=== PATIENT | female | born 1970 | race African-American/Black ===

== ENCOUNTER 2020-09-25 11:04 | Emergency (ER) | payer OTHER, SELFPAY ==
--- NOTE | ~2020-09-25 | XR_ITS ---
EXAMINATION: XR hand RT min 3V DATE: 09/25/2020 11:56 INDICATION: Right hand pain. Inability to straighten the third digit. TECHNIQUE: 4 views of right hand were obtained. COMPARISON: None. FINDINGS: The second, third, and fourth digits are flexed on all views. No fracture. Joint spaces are normal. IMPRESSION: 1. No fracture. Reviewed, dictated and finalized at location A. IMPRESSION: 1. No fracture.
[2020-09-25 11:27] VITALS: BP 148/95; PULSE 67; RESP 16; TEMP 36.4; O2SAT 100
--- NOTE | 2020-09-25 11:45 | ED.UPPEXIN ---
HPI - Extremity Injury (Upper) General Chief Complaint: Extremity Injury, Upper Stated Complaint: rt hand pain Time Seen by Provider: 09/25/20 11:35 Source: patient Mode of arrival: ambulatory Limitations: no limitations History of Present Illness HPI narrative: Brandy Gardiner a 50 yo female with PMH of RA, OA, lupus, who comes to the [facility] with complaints of difficulty opening right hand and swelling nodules on the back of right hand. Denies trauma or any infection; occurred in the last 24 hours, are tender nodules Related Data Home Medications Medication Instructions Recorded Confirmed ibuprofen 800 mg PO Q6H PRN 09/25/20 09/25/20 Allergies Allergy/AdvReac Type Severity Reaction Status Date / Time codeine Allergy Mild Other Verified 09/25/20 12:34 Review of Systems Review of Systems: Narrative: CONSTITUTIONAL: Denies fever, chills, sweats. EYES: Denies visual changes, redness, discharge. ENT: Denies rhinorrhea, congestion, sore throat, otalgia. CARDIOVASCULAR: Denies chest pain, palpitations, edema. RESPIRATORY: Denies dyspnea, wheezing, cough GASTROINTESTINAL: Denies abdominal pain, nausea, vomiting, diarrhea. GENITOURINARY: Denies dysuria, hematuria, abnormal discharge SKIN: Denies rash or itching. Difficulty opening hand with nodules on the dorsal side of hand, mild hand swelling NEUROLOGIC: Denies numbness, or focal weakness. PSYCHIATRIC: Denies anxiety or depression. PMFSH Past Medical History Medical History Osteoarthritis Rheumatoid arthritis Social History Social History (Updated 09/25/20 @ 12:12 by Renetta Juarez CNP) Smoking status: Never smoker Alcohol intake: never Comments At time of signature, I agree with nursing past medical, surgical, social and family history. There is no relevant family history pertinent to the presenting complaint. BP elevated on this visit, to follow up with pcp this next week Exam Narrative: Exam Narrative: GENERAL: This is a well-nourished, well-developed patient, in mild distress. HEAD: normocephalic, atraumatic. EYES:Sclera clear/white. Vision is grossly intact. EARS: External ears normal, Hearing grossly intact. NOSE: External nose normal without nasal discharge, nares without redness, no rhinorrhea. THROAT: Mucous membranes moist, NECK: Neck supple, CARDIOVASCULAR: Regular rate and rhythm without murmurs, gallops, or rubs. RESPIRATORY: Clear to auscultation. Breath sounds equal bilaterally. No wheezes, rales, or rhonchi. GASTROINTESTINAL: Abdomen soft, SKIN: warm, intact with no suspicious lesions or rash, good texture and turgor. NEURO: awake, alert, and oriented to person, place and time. There were no obvious focal neurologic abnormalities. Steady gait EXTREMITIES: Normal range of motion. 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, 5/5 on L BACK: Nontender without deformity Course Course Emergency Course: Patient states has already in his treatment at [facility] but does not take any medication; she has knowledge of the back of her right hand and difficulty opening her hand full extension, states nodules are tender X-ray shows no fracture on my exam, no nodules states joint spaces are normal Started on prednisone and Keflex Follow-up with physician at [facility] Vital Signs Vital signs: Vital Signs Temperature 97.5 F L 09/25/20 11:27 Pulse Rate 67 09/25/20 11:27 Respiratory Rate 16 09/25/20 11:27 Blood Pressure 148/95 H 09/25/20 11:27 Pulse Oximetry 100 09/25/20 11:27 Temperature 97.5 F L 09/25/20 11:27 Pulse Rate 67 09/25/20 11:27 Respiratory Rate 16 09/25/20 11:27 Blood Pressure 148/95 H 09/25/20 11:27 Pulse Oximetry 100 09/25/20 11:27 MDM - Extremity Injury (Upper) Differential Diagnosis Differential diagnosis: Likely other (RA versus OA versus insect bite reaction) Critical Care Ti
[2020-09-25] MEDS: predniSONE 20 MG TABLET 60 MG PO (13:26)
--- NOTE | 2020-09-25 14:33 | PC.NURSE ---
1326 Pt returned to facility for ordered medication; left facility without incident.
== END 2020-09-25 13:30 | disposition home or self-care (01) ==
PROVIDERS: Emergency Provider Nurse Practitioner; PCP Internal Medicine Infectious Disease
DX: M79.89 Other specified soft tissue disorders (principal); M19.90 Unspecified osteoarthritis, unspecified site; M06.9 Rheumatoid arthritis, unspecified; M32.9 Systemic lupus erythematosus, unspecified
CPT/HCPCS: 73130; 99203; G0463; J7512

== ENCOUNTER 2021-11-26 16:27 | Emergency (ER) | payer OTHER, SELFPAY ==
--- NOTE | ~2021-11-26 | XR_ITS ---
XR shoulder RT min 2V DATE: 11/26/2021 17:12 INDICATION: Generalized right shoulder pain TECHNIQUE: 3 views COMPARISON: None FINDINGS: No fracture or dislocation, periosteal reaction or bone destruction or abnormal soft tissue calcification of the right shoulder. IMPRESSION: Negative Reviewed, dictated and finalized at location B. IMPRESSION: Negative
--- NOTE | ~2021-11-26 | XR_ITS ---
EXAMINATION: XR foot RT min 3V DATE: 11/26/2021 17:12 INDICATION: Right foot pain TECHNIQUE: Dorsoplantar, lateral, and 2 oblique views of the right foot were obtained. COMPARISON: None. FINDINGS: Bone alignment is normal. There is a subtle heterotopic ossification projecting dorsal to t he neck of the talus on the lateral view. There is moderate to severe osteoarthritis of multiple inte rphalangeal joints. Posterior and plantar calcaneal enthesophytes are noted. IMPRESSION: 1. Heterotopic ossification projecting dorsal to the neck of the talus on the lateral view which coul d reflect degenerative change. Correlate for point tenderness at this site for possible fracture. Reviewed, dictated and finalized at location A. IMPRESSION: 1. Heterotopic ossification projecting dorsal to the neck of the talus on the l ateral view which could reflect degenerative change. Correlate for point tender ness at this site for possible fracture.
--- NOTE | 2021-11-26 16:29 | ED.UPPEXIN ---
HPI - Extremity Injury (Upper) General Stated Complaint: INJURED SHOULDER/FOOT Time Seen by Provider: 11/26/21 16:28 Source: patient Mode of arrival: ambulatory Limitations: no limitations History of Present Illness HPI narrative: Ms. Keys is a 51-year-old female patient with history of rheumatoid arthritis, lupus, and type II diabetes presenting to the clinic today with complaints of injured shoulder and foot. She reports exiting her vehicle this morning when she slipped on the grass and pulled her right shoulder and banged her foot on the car door. 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 She denies head injury or loss of consciousness. She has not taken any additional medications to help with pain, just her normal medications. Related Data Home Medications Medication Instructions Recorded Confirmed ibuprofen 800 mg tablet 800 mg PO Q6H PRN Pain 09/25/20 09/25/20 ergocalciferol (vitamin D2) 1,250 11/26/21 mcg (50,000 unit) capsule hydroxychloroquine 200 mg tablet mg PO 11/26/21 metformin 500 mg tablet,extended mg PO 11/26/21 release 24 hr rosuvastatin 5 mg tablet mg 11/26/21 sulfamethoxazole 800 tablet 11/26/21 mg-trimethoprim 160 mg tablet Allergies Allergy/AdvReac Type Severity Reaction Status Date / Time codeine Allergy Mild Other Verified 11/26/21 16:38 Review of Systems Review of Systems: Pertinent positives per HPI. Patient denies any fever, chills, rash, headache, visual changes, dizziness, cough, runny nose, sore throat, shortness of breath, chest pain, palpitations, nausea, vomiting, diarrhea, constipation, abdominal pain, or any urinary issues. FORMERLY [facility], [facility]1983 Past Medical History Medical History Osteoarthritis Rheumatoid arthritis Social History Social History Smoking status: Never smoker Alcohol intake: never Comments At the time of my signature, I reviewed and agree with the nursing past medical, surgical, social, and family history. There is no relevant family history pertinent to the patient complaint. Exam Narrative: General: Well-developed, over-weight, well nourished, in no apparent distress Head: Normocephalic, atraumatic. Cardio: Regular rate and rhythm, s1 and s2 normal, no murmur appreciated. Resp: Clear to auscultation bilaterally, no rhonchi, rales, wheezing or rubs. Musculoskeletal: No deformity, tender to palpation diffusely across the muscles surrounding the shoulder and shoulder joints as well as to the middle anterior aspect of the right foot across the proximal metatarsals, limited range of motion of the right shoulder secondary to pain when compared to left, negative drop-arm test, unable to raise right arm above shoulder level, normal ROM of the toes and ankles, muscle strength strong and equal, peripheral pulse strong, no edema, no cyanosis, normal gait and station Course Course Emergency Course: Portions of this record may have been created with voice recognition software. Level of Care: Express Care Visit Vital Signs Vital signs: Vital signs reviewed MDM - Extremity Injury (Upper) MDM Narrative Medical decision making narrative: At the time of visit patient was resting comfortably on the exam table. X-rays were performed of the right shoulder and right foot and there was no sign of acute fracture per radiologist. I suspect the patient has a right shoulder strain and foot contusion. Supportive measures were discussed with the patient she voiced understanding of discharge instructions and agrees to treatment plan. Differential Diagnosis Differential diagnosis: Likely dislocation of shoulder, fracture of clavicle and other (Shoulder strain, shoulder fracture, foot fracture, foot sprain, foot contusion, soft tissue injury) Imaging Data Radiologist's impression: Express Care
[2021-11-26 16:35] VITALS: BP 114/90; PULSE 92; RESP 16; TEMP 36.5; O2SAT 99
== END 2021-11-26 17:55 | disposition home or self-care (01) ==
PROVIDERS: Emergency Provider Nurse Practitioner Family; PCP Internal Medicine Infectious Disease
DX: S46.911A Strain of unspecified muscle, fascia and tendon at shoulder and upper arm level, right arm, initial encounter (principal); W01.0XXA Fall on same level from slipping, tripping and stumbling without subsequent striking against object, initial encounter; M79.671 Pain in right foot; M06.9 Rheumatoid arthritis, unspecified; E11.9 Type 2 diabetes mellitus without complications; M32.9 Systemic lupus erythematosus, unspecified
CPT/HCPCS: 73030; 73630; 99214; G0463

== ENCOUNTER 2021-12-14 10:00 | Emergency (ER) | payer OTHER, SELFPAY ==
--- NOTE | 2021-12-14 10:04 | ED.URI ---
HPI - URI/Sore Throat General Chief Complaint: Nausea/Vomiting/Diarrhea Stated Complaint: abdominal pain, nausea, cough, runny nose Time Seen by Provider: 12/14/21 10:49 Source: patient and RN notes reviewed Mode of arrival: ambulatory Limitations: no limitations History of Present Illness HPI Narrative: 51-year-old female presents with concern for nasal congestion, rhinorrhea, cough, nausea, diarrhea, some vomiting with dry heaving, epigastric discomfort. She reports symptoms started on mildly, increased and were worse on Tuesday. She reports her employer had cold symptoms. She reports she took a negative COVID test on Tuesday. She reports she recently has been started on metformin along with several other new medications that she feels she is not tolerating very well. She is also currently on Bactrim for periodontal disease. She reports she is tolerating fluids enough to urinate at least every 6-8 hours. MD elicited complaint: cough, rhinorrhea, nasal congestion and other (Vomiting and diarrhea) Related Data Home Medications Medication Instructions Recorded Confirmed ibuprofen 800 mg tablet 800 mg PO Q6H PRN Pain 09/25/20 12/14/21 ergocalciferol (vitamin D2) 1,250 1 mcg PO DAILY 11/26/21 12/14/21 mcg (50,000 unit) capsule hydroxychloroquine 200 mg tablet 200 mg PO DAILY 11/26/21 12/14/21 metformin 500 mg tablet,extended 500 mg PO DAILY 11/26/21 12/14/21 release 24 hr rosuvastatin 5 mg tablet 5 mg PO DAILY 11/26/21 12/14/21 sulfamethoxazole 800 1 tablet PO DAILY 11/26/21 12/14/21 mg-trimethoprim 160 mg tablet Allergies Allergy/AdvReac Type Severity Reaction Status Date / Time codeine Allergy Mild Other Verified 12/14/21 10:29 Review of Systems Review of Systems: CONSTITUTIONAL: Reports malaise, fatigue. Denies chills, sweats, or fever. EYES: Denies visual changes, redness, or discharge. ENT: Reports rhinorrhea, congestion. Denies sinus pain, otalgia and sore throat. CARDIOVASCULAR: Denies chest pain, palpitations, or edema. RESPIRATORY: Reports cough. Denies dyspnea. GASTROINTESTINAL: Reports epigastric abdominal pain, nausea, vomiting, diarrhea SKIN: Denies rash or itching. MUSCULOSKELETAL: Reports myalgia. NEUROLOGIC: Denies headache. All systems reviewed & are unremarkable except as noted in HPI and below PMFSH Past Medical History Medical History Osteoarthritis Rheumatoid arthritis Social History Social History Smoking status: Never smoker Alcohol intake: never Comments At time of signature, agree with nursing past medical, surgical, social and family history. There is no relevant family history pertinent to the presenting complaint Exam Narrative: GENERAL: Nontoxic appearing and in no acute distress. HEAD: Normocephalic EYES: PERRLA, conjunctivae clear ENT: Nares clear, turbinates erythematous, clear discharge. Mucous membranes moist. TM pearly dickey with sharp light reflex bilaterally; no tragal tenderness. Oropharynx erythematous without lesions. Tonsils not enlarged and without exudate, no drooling, no hoarseness, no trismus, uvula midline. NECK: Supple. No lymphadenopathy CHEST: Clear to auscultation, breath sounds equal. No wheezing, rhonchi, rales, or stridor. No respiratory distress, speaks in full sentences. HEART: Regular rate and rhythm. No murmur heard. ABD: Bowel sounds present in all 4 quadrants, no abdominal distention noted, mild epigastric tenderness SKIN: Warm, dry, no rash. NEURO: Alert and oriented x3. PSYCH: Normal mood and affect Course Course Emergency Course: Discussed limited [facility] capability [facility]. Patient feels that her stomach discomfort may be due to poor tolerance of her new medications. Patient is aware of diagnosis, understands and agrees to treatment plan. Anticipatory guidance given. Patient
[2021-12-14 10:25] VITALS: BP 115/75; PULSE 78; RESP 16; TEMP 36.4; O2SAT 100
== END 2021-12-14 11:37 | disposition home or self-care (01) ==
PROVIDERS: Emergency Provider Nurse Practitioner; PCP Internal Medicine Infectious Disease
DX: J06.9 Acute upper respiratory infection, unspecified (principal); Z20.822 Contact with and (suspected) exposure to COVID-19; M19.90 Unspecified osteoarthritis, unspecified site; M06.9 Rheumatoid arthritis, unspecified
CPT/HCPCS: 87426; 87804; 99213; C9803; G0463

== ENCOUNTER 2024-09-04 08:10 | Emergency (ER) | payer BC, SELFPAY ==
--- NOTE | 2024-09-04 08:22 | ED_ITS ---
HPI - Extremity Injury (Lower) General Chief Complaint: Extremity Problem,Nontraumatic Stated Complaint: Right Ankle Pain Time Seen by Provider: 09/04/24 08:40 Source: patient and RN notes reviewed Mode of arrival: ambulatory Limitations: no limitations History of Present Illness HPI Narrative: 54-year-old female presents with concern for right ankle pain and swelling. She has history of lupus and rheumatoid arthritis. She reports Tuesday she was sitting for prolonged period of time with her ankle an awkward position and she noticed the pain started after that. She later stepped down out of a truck and put more pressure on it than usual exacerbating the pain. She reports pain with weight-bearing and certain range of motion. She has been alternating Tylenol and ibuprofen and elevating it and using heat. Denies warmth, redness, open skin. She denies injury MD complaint: ankle injury Related Data Home Medications ?Medication ?Instructions ?Recorded ?Confirmed ?Last Taken ?Type ergocalciferol (vitamin D2) 1,250 1 mcg PO DAILY 11/26/21 12/14/21 Unknown History mcg (50,000 unit) capsule hydroxychloroquine 200 mg tablet 200 mg PO DAILY 11/26/21 12/14/21 Unknown History metformin 500 mg tablet,extended 500 mg PO HS 11/26/21 12/14/21 Unknown History release 24 hr rosuvastatin 5 mg tablet 5 mg PO DAILY 11/26/21 12/14/21 Unknown History Allergies Allergy/AdvReac Type Severity Reaction Status Date / Time codeine Allergy Mild Other Verified 09/04/24 08:29 Review of Systems Review of Systems: CONSTITUTIONAL: Denies malaise, chills, sweats, or fever. SKIN: Denies rash or itching, open skin, laceration, abrasion, redness, warmth MUSCULOSKELETAL: Reports right ankle pain and swelling NEUROLOGIC: Denies numbness, weakness All systems reviewed & are unremarkable except as noted in HPI and below PMFSH Past Medical History Medical History Osteoarthritis Rheumatoid arthritis Social History Social History Smoking status: Never smoker Alcohol intake: never Comments At time of signature, agree with nursing past medical, surgical, social and family history. There is no relevant family history pertinent to the presenting complaint Exam Narrative: GENERAL: Well-appearing, well-nourished, and in no acute distress. HEAD: Normocephalic, atraumatic. EYES: PERRLA, conjunctivae clear NECK: Supple. CHEST: Speaks in full sentences. No respiratory distress. HEART: Regular rate and rhythm. Normal and equal peripheral pulses. EXTREMITIES: Right ankle, foot, digits have grossly normal strength and sensation, grossly normal range of motion. Mild lateral edema without erythema, warmth, or ecchymosis. 5/5 strength with ankle in digit flexion and extension. Normal sensation with sensitivity to light touch and pain. Posterior and lateral ankle tenderness. No open wounds, no skin tenting, no devitalized tissue or atrophy, no trophic changes, no obvious deformity, alignment normal, nearby joints and structures intact. Distal pulses palpable and equal bilaterally, skin warm, dry, pink. Capillary refill less than 3 seconds. SKIN: Warm, dry, no rash. NEURO: Alert and oriented x3. PSYCH: Normal mood and affect Course Course Emergency Course: Patient is aware of diagnosis, understands and agrees to treatment plan. Anticipatory guidance given. Patient agrees to follow-up as directed and is aware of reasons to seek care at the emergency department. Portions of this record may have been created with voice recognition software Level of Care: Express Care Visit Vital Signs Vital signs: Reviewed. MDM - Extremity Injury (Lower) MDM Narrative Medical decision making narrative: The patient was evaluated by myself in the express care. History is obtained from patient who is an independent historian and physical exam was performed.? Available medical records were reviewed at this time. ? Exam findings show no acute concerns or changes; patient is non-toxic appearing and is in no distress. Patient is appropriate for outpatient treatment and follow-up. ? I have evaluated and discussed social determinants of health with the patient that could potentially impact subsequent diagnosis and treatment plans. ? Patients injury and pain is consistent with musculoskeletal etiology. No signs of neurological or vascular compromise on exam. Compartments and tissues are soft without signs of compartment syndrome. Pain is felt appropriate for further evaluation on an outpatient basis. Critical Care Time Critical Care Time Critical Care Time: No Discharge Plan Discharge Clinical Impression: Tendinitis Patient Disposition: Home Condition: Stable Instructions: Tendinitis (ED) Additional Instructions: Avoid activities that cause pain until the pain subsides. Ice to the area 20-30 minutes 4-6 times a day Elevate above heart Elastic wrap as directed for the next 5-7 days Tylenol for lesser pain Ibuprofen regularly for the next 2-3 days for the inflammation Follow up with your primary care provider if the condition is not improving within 1 week. If the condition worsens with numbness, tingling, decrease sensation with weakness seek treatment in the emergency room immediately. Patient Language: Mongolian Prescriptions: No Action ipratropium bromide 21 mcg (0.03 %) spray,non-aerosol 2 spray NASAL TID PRN (Reason: nasal drainage) Qty: 30 0RF Rx Instructions: administer into each nostril ergocalciferol (vitamin D2) 1,250 mcg (50,000 unit) capsule 1 mcg PO DAILY hydroxychloroquine 200 mg tablet 200 mg PO DAILY metformin 500 mg tablet extended release 24 hr 500 mg PO HS rosuvastatin 5 mg tablet 5 mg PO DAILY Follow-up/Referrals: PHYSICIAN,SOCIAL SCIENCES LECTURER [Primary Care Provider] - Stand Alone Forms: Work/School Release IP Time of Disposition: 08:53
[2024-09-04 08:28] VITALS: BP 119/90; PULSE 80; RESP 14; TEMP 36.9; O2SAT 100
== END 2024-09-04 08:55 | disposition home or self-care (01) ==
PROVIDERS: Emergency Provider Nurse Practitioner
DX: M67.873 Other specified disorders of tendon, right ankle and foot (principal); M19.90 Unspecified osteoarthritis, unspecified site; M06.9 Rheumatoid arthritis, unspecified
CPT/HCPCS: 99212; G0463

== ENCOUNTER 2024-11-27 12:40 | Emergency (ER) | payer BC, SELFPAY ==
--- OUTSIDE RECORDS SUMMARY | 2024-11-27 12:47 | XMS_ITS | Encounter Summary ---
Author Organization [facility] Address [address] [place] [address] Phone Care Team Providers Care Automobile Brake Bonder Name Role Phone Kellie Tracy MD Primary Care Provider Encounter Details Date Type Department Care Team (Late st Contact Info) Description 11/26/2021 Orders Only [facility] Scanning, Provider Social History Tobacco Use Types Packs/Day Years Used Date Smoking Tobacco: Never Smokeless Tobacco: Never Alcohol Use Standard Drinks/Week Comments Not Currently 0 (1 standard drink = 0.6 oz pur e alcohol) Comments No Sex and Gender Information Value Date Recorded Sex Assigned at Not on file 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 Gender Identity Not on file Sexual Orientation Not on file documented as of this encounter Plan of Treatment Not on file documented as of this encounter Procedures Procedure Name Priority Date/Time Associated Diagnosis Comments SCAN - RADIOLOGY/IMAGING 11/26/2021 documented in this encounter Results * SCAN - RADIOLOGY/IMAGING (11/26/2021) Anatomical Region Laterality Modality Other us Provider Scanning Final Result documented in this encounter Visit Diagnoses Not on filedocumented in this encounter Additional Health Concerns Infection Onset Date Last Indicated Resolved Time COVID: Suspected 03/22/2023 03/22/2023 03/22/2023 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
--- OUTSIDE RECORDS SUMMARY | 2024-11-27 12:47 | XMS_ITS | Encounter Summary ---
Author Organization [facility] Address [address] [place] [address] Phone Care Team Providers Care Adz Worker Name Role Phone Kellie Tracy MD Primary Care Provider Encounter Details Date Type Department Care Team (Late st Contact Info) Description 10/31/2019 Orders Only [facility] Scanning, Provider Social History Tobacco Use Types Packs/Day Years Used Date Smoking Tobacco: Never Smokeless Tobacco: Never Alcohol Use Standard Drinks/Week Comments Not Currently 0 (1 standard drink = 0.6 oz pur e alcohol) Comments No Sex and Gender Information Value Date Recorded Sex Assigned at Not on file 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 Gender Identity Not on file Sexual Orientation Not on file documented as of this encounter Plan of Treatment Not on file documented as of this encounter Procedures Procedure Name Priority Date/Time Associated Diagnosis Comments PULMONARY - RESULT SCAN 10/31/2019 CARDIOLOGY DOCUMENT SCAN 10/31/2019 documented in this encounter Results * PULMONARY - RESULT SCAN (10/31/2019) Anatomical Region Laterality Modality Other us Provider Scanning Final Result * SCAN - CARDIOLOGY (10/31/2019) Anatomical Region Laterality Modality Other us Provider Scanning CV CARDIAC SERVICES PROCEDURES Final Result documented in this encounter Visit Diagnoses Not on filedocumented in this encounter Additional Health Concerns Infection Onset Date Last Indicated Resolved Time COVID: Suspected 03/22/2023 03/22/2023 03/22/2023 11:25 AM COOK VEGETABLE COVID: Suspected 07/18/2023 07/18/2023 07/19/2023 12:35 AM CDT documented as of this encounter Care Teams Adz Worker Relationship Specialty Start Date End Date Kellie Tracy MD [address] [place] [address] PCP - General 03/26/19 documented as of this encounter
--- OUTSIDE RECORDS SUMMARY | 2024-11-27 12:47 | XMS_ITS | Clinical Summary ---
Author Organization [facility] Address [address] [place] [address] Care Team Providers Care Pewter Finisher Name Role Phone Kellie Tracy MD Primary Care Provider Allergies Active Allergy Reactions Criticality Noted Date Comments Codeine Other (See comments) Low 07/23/2017 Paralyzing feeling in my back. Medications rosuvastatin (CRESTOR) 5 mg tablet Take 1 tablet (5 mg total) by mouth daily 2 Active metFORMIN XR (GLUCOPHAGE XR) 500 mg 24 hr tablet Take 1 tablet (500 mg total) by mouth nightly 3 Active traMADoL (ULTRAM) 50 mg tablet Take 1 tablet (50 mg total) by mouth every 8 (eight) hours as needed for pain 10 tablet 3 Active etanercept (ENBREL) 50 mg/mL (1 mL) pen injector Inject 1 mL (50 mg total) under the skin every 7 days 12 mL 2 4 Active hydroxychloroqu ine (PLAQUENIL) 200 mg tablet Take 1 tablet (200 mg total) by mouth 2 (two) times a day 180 tablet 3 4 Active methotrexate 2.5 mg tabletIndicatio ns:Other - non-oncology Take 6 tablets (15 mg total) by mouth every 7 days 72 tablet 2 4 Active folic acid (FOLVITE) 1 mg tablet Take 1 tablet (1,000 mcg total) by mouth daily 90 tablet 2 4 Active ergocalciferol (VITAMIN D) 50,000 unit capsule TAKE 1 CAPSULE BY MOUTH ONE TIME PER WEEK 12 capsule 1 4 Active acetaminophen (TYLENOL) 500 mg tablet Take 1 tablet (500 mg total) by mouth every 6 (six) hours as needed for pain, headaches or fever 30 tablet 4 Active loratadine (CLARITIN) 10 mg tablet Take 1 tablet (10 mg total) by mouth daily 20 tablet 4 Active Active Problems Problem Noted Date Diagnosed Date Diabetes mellitus type 2 without retinopathy Assessment & Plan (02/11/2022 10:46 AM APPLICATION SUPPORT INTERN): No background diabetic 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 (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) No neovascularization of the disc (NVD), neovascularization elsewhere (NVE), NVI, CSME both eyes (OU) Strict BG control, monitor yearly Systemic lupus erythematosus 04/15/2020 Assessment & Plan (02/11/2022 10:46 AM APPLICATION SUPPORT INTERN): No ophthalmic complications Pain in joint, multiple sites 12/18/2019 Positive JAREK (antinuclear antibody) 12/18/2019 Encounter for eye exam due to high risk medicati on Assessment & Plan (02/11/2022 10:46 AM APPLICATION SUPPORT INTERN): 200mg every day (qd) < 1 year, <5mg/kg dose at this time Macula healthy OU, OCT WNL OU HVF WNL OU Educated and reassured patient of findings RTC 1 year or PRN with VA changes High risk medication use Hypovitaminosis D Immunizations Immunization Administration Dates Next Due Influenza, Quadrivalent, Noemy l Culture-based MDCK, Preservative Free, Antibiotic Free, Intramuscular 02/16/2022,04/15/2020 Surgical History Surgery Date Site/Laterality Comments TUBAL LIGATION Medical History Medical History Date Comments Lupus Anemia Minimal change disease Family History Medical History Relation Name Comments Hypertension Brother Other Brother cad Polycystic ovary syndrome Daughter Diabetes Father Hypertension Father PAD Father Hyperlipidemia Mother Hypertension Mother Thyroid disease Mother Glaucoma Neg Hx Retinal detachment Neg Hx Relation Name Status Comments Brother Alive Daughter Alive Father Mother Alive Social History Tobacco Use Types Packs/Day Years Used Date Smoking Tobacco: Never Smokeless Tobacco: Never Tobacco Cessation:Counseling Given: Not Answered Alcohol Use Standard Drinks/Week Comments Not Currently 0 (1 standard drink = 0.6 oz pur e alcohol) AUDIT-C Answer Date Recorded Q1: How often do you have a drink containing alc ohol? Monthly or less 05/24/2023 Average Number of Drinks Not on file 024 Frequency of Binge Drinking Not on file 04/29 Personal Safety Answer Date Recorded Have you ever been in or are you currently in a harmful physical or emotional relationship or is someone making you feel afraid or unsafe? Denies 12/13/2023 Comments No Sex and Gender Information Value Date Recorded Sex Assigned at Not on file Legal Sex Female 11:52 AM APPLICATION SUPPORT INTERN Gender Identity Not on file Sexual Orientation Not on file Obstetrics History Last Filed Vital Signs Vital Sign Reading Time Taken Comments Blood Pressure 132/78 12/14/2023 5:26 AM CDT Pulse 86 12/14/2023 5:26 AM CDT Temperature 37 C (98.6 F) 12/13/2023 11:47 PM CDT Respiratory Rate 16 12/14/2023 5:26 AM CDT Oxygen Saturation 100% 12/14/2023 5:26 AM CDT Inhaled Oxygen Concentration - - Weight 106.6 kg (235 lb) 12/13/2023 11:47 PM CDT Height 162.6 cm (5' 4) 12/13/2023 11:47 PM CDT Body Mass Index 40.34 12/13/2023 11:47 PM CDT Plan of Treatment Health Maintenance Due Date Last Done Comments Albumin Creatinine Ratio, Urine 1971 Cervical Cancer Screening 1971 Colon Cancer Screening-Colonoscopy 1971 Depression Screening 1971 Hemoglobin A1C 1971 Hepatitis C Screening 1971 Foot Exam 1971 Lipid Panel 1971 Hepatitis B Screening 06/14/1989 Regular Well Visit/Exam 18-64 06/14/1989 Pneumococcal vaccine <65 (1 of 2 - PCV) 06/14/1990 Zoster Vaccine (1 of 2) 06/14/1990 Breast Cancer Screening-Mammogram 08/09/2015 015 DTaP/Tdap/Td Vaccine (2 - Td or Tdap) 03/28/2017 03/28/2007 Dilated Eye Exam 02/11/2023 02/11/2022 eGFR 05/24/2024 05/24/2023, 12/2 08/2022, 10/26/2022, Additional history exists Influenza Vaccine (#1) 2024 02/16/2022, 2020 Procedures Procedure Name Priority Date/Time Associated Diagnosis Comments EGFR Routine 05/24/2023 10:55 AM APPLICATION SUPPORT INTERN Rheumatoid arthritis involving multiple sites with positive rheumatoid factor (HCC) Systemic lupus erythematosus, unspecified SLE type, unspecified organ involvement status (HCC) High risk medication use DIAGNOSTIC MAMMOGRAM BILATERAL W YINKA Routine 08/08/2014 2:52 PM CDT from Last 3 Months or Most Recently Relevant to Health Maintenance Results * eGFR (05/24/2023 10:55 AM APPLICATION SUPPORT INTERN) eGFR 108 mL/min/1. 73 m2 [facility] Comment: Interpretive Data Reference Interval Normal >/= 90 mL/min/1.73m2 Mildly decreased* 60 - 89 mL/min/1.73m2 Mildly to moderately decreased 45 - 59 mL/min/1.73m2 Moderately to severely decreased 30 - 44 mL/min/1.73m2 Severely decreased 15 - 29 mL/min/1.73m2 Kidney Failure < 15 mL/min/1.73m2 *Relative to young adult level Estimated glomerular filtration rate is determined by the 2020 CKD-EPI equation recommended by the National Kidney Foundation (A Unifying Approach to GFR Estimation: Recommendations of the NKF-ASK Task Force on Reassessing the Inclusion of Race in Diagnosing Kidney Disease, JASN 2020). The CKD-EPI equation should not be used for patients with unstable renal function and has not been validated in children and those over 70. Current interpretive data was last reviewed 2021. Blood 05/24/2023 10:5 5 AM APPLICATION SUPPORT INTERN 05/24/2023 11:20 AM APPLICATION SUPPORT INTERN us Erin García MD LAB BLOOD ORDERABLES Final Result [facility] [address] [facility]. Department [place] [employer] [place] [address] * DIAGNOSTIC MAMMOGRAM BILATERAL W YINKA (08/08/2014 2:52 PM CDT) Anatomical Region Laterality Modality Breast Bilateral Mammography 08/08/2014 2:52 PM CDT Narrative 08/08/2014 3:12 PM CDT LUKE BASHIR M.D. FINAL REPORT ACC# Date Time Exam [id number] August 08, 2014 14:52:00 [facility] [place] [address] Dig Breast Yinka Yann [id number] August 08, 2014 14:52:00 [facility] [place] [address] Diag Mammogram Bilateral Technologist(s): Dali Sue; ; EXAMINATION: BILATERAL FULL FIELD DIGITAL DIAGNOSTIC MAMMOGRAM WITH CAD AND DIGITAL BREAST TOMOSYNTHESIS HISTORY: 44-year-old woman with a reported palpable area of concern in the upper inner right breast and in the upper outer left breast. TECHNIQUE: Full field digital craniocaudal and mediolateral oblique views of both breasts were obtained. Computer Aided Detection was performed with [employer].3 version 9.3. Digital breast tomosynthesis was performed and reviewed as a part of this examination. COMPARISON: 10/23/2009 and 10/03/2009 BREAST PARENCHYMAL COMPOSITION: The breasts are almost entirely fatty. FINDINGS: No new suspicious abnormality is seen within either breast on mammogram. Clinical breast exam while the patient was in our department today reveals normal fatty breast tissue with no suspicious clinical findings. IMPRESSION: OVERALL FINAL ASSESSMENT: BI-RADS Category 1: Negative. RECOMMENDATION: Annual screening mammography is recommended. Requested By: Dictated By: LUKE BASHIR M.D. on Aug 08 2014 3:12P This document has been electronically signed by: LUKE BASHIR M.D. on Aug 08 2014 3:12P [id number] Procedure Note Provider, MD Diana - 07/16/2016 LUKE BASHIR M.D. FINAL REPORT ACC# Date Time Exam [id number] August 08, 2014 14:52:00 [facility] [place] [address] Dig Breast Yinka Yann [id number] August 08, 2014 14:52:00 [place] [id number] Diag Mammogram Bilateral Technologist(s): Dali Sue; ; EXAMINATION: BILATERAL FULL FIELD DIGITAL DIAGNOSTIC MAMMOGRAM WITH CAD AND DIGITAL BREAST TOMOSYNTHESIS HISTORY: 44-year-old woman with a reported palpable area of concern in the upper inner right breast and in the upper outer left breast. TECHNIQUE: Full field digital craniocaudal and mediolateral oblique views of both breasts were obtained. Computer Aided Detection was performed with [employer].3 version 9.3. Digital breast tomosynthesis was performed and reviewed as a part of this examination. COMPARISON: 10/23/2009 and 10/03/2009 BREAST PARENCHYMAL COMPOSITION: The breasts are almost entirely fatty. FINDINGS: No new suspicious abnormality is seen within either breast on mammogram. Clinical breast exam while the patient was in our department today reveals normal fatty breast tissue with no suspicious clinical findings. IMPRESSION: OVERALL FINAL ASSESSMENT: BI-RADS Category 1: Negative. RECOMMENDATION: Annual screening mammography is recommended. Requested By: Dictated By: LUKE BASHIR M.D. on Aug 08 2014 3:12P This document has been electronically signed by: LUKE BASHIR M.D. on Aug 08 2014 3:12P [id number] Historical Provider MD FERNÁNDEZ MAMMO PROCEDURES Chelsea l Result from Last 3 Months or Most Recently Relevant to Health Maintenance Insurance [facility] ANTHEM ACCESS CHOICE ANTHEM ACCESS CHOICE IDPA WORKERS COMPENSATION GENERIC Care Teams Pewter Finisher Relationship Specialty [place] [address] [place] [id number] PCP - General 03/26/19
--- NOTE | 2024-11-27 13:33 | PC.NURSE ---
Pt to triage desk stating, I'm just gonna go to Urgent Care. Pt ambulated to exit using steady gait NAD noted
--- OUTSIDE RECORDS SUMMARY | 2024-11-27 13:50 | XMS_ITS | Encounter Summary ---
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
--- OUTSIDE RECORDS SUMMARY | 2024-11-27 13:50 | XMS_ITS | Encounter Summary ---
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
--- OUTSIDE RECORDS SUMMARY | 2024-11-27 13:50 | XMS_ITS | Clinical Summary ---
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) No neovascularization of the disc (NVD), neovascularization elsewhere (NVE), NVI, CSME both eyes (OU) Strict BG control, monitor yearly Systemic lupus erythematosus 04/15/2020 Assessment & Plan (02/11/2022 10:46 AM PSYCHIATRIC SOCIAL WORKER): No ophthalmic complications Pain in joint, multiple sites 12/18/2019 Positive JAREK (antinuclear antibody) 12/18/2019 Encounter for eye exam due to high risk medicati on Assessment & Plan (02/11/2022 10:46 AM PSYCHIATRIC SOCIAL WORKER): 200mg every day (qd) < 1 year, [...] on file Legal Sex Female 11:52 AM PSYCHIATRIC SOCIAL WORKER Gender Identity Not on file Sexual [...] Diagnosis Comments EGFR Routine 05/24/2023 10:55 AM PSYCHIATRIC SOCIAL WORKER Rheumatoid arthritis involving multiple sites with positive rheumatoid factor (HCC) Systemic lupus erythematosus, unspecified SLE type, unspecified organ involvement status (HCC) High risk medication use DIAGNOSTIC MAMMOGRAM BILATERAL W YINKA Routine 08/08/2014 2:52 PM CDT from Last 3 Months or Most Recently Relevant to Health Maintenance Results * eGFR (05/24/2023 10:55 AM PSYCHIATRIC SOCIAL WORKER) eGFR 108 mL/min/1. 73 m2 [facility] [...] reviewed 2021. Blood 05/24/2023 10:5 5 AM PSYCHIATRIC SOCIAL WORKER 05/24/2023 11:20 AM PSYCHIATRIC SOCIAL WORKER us Erin García MD LAB BLOOD ORDERABLES Final Result [facility] [address] [facility]. [place] [employer] [place] [address] * DIAGNOSTIC MAMMOGRAM BILATERAL W YINKA (08/08/2014 2:52 PM CDT) Anatomical Region Laterality Modality Breast Bilateral Mammography 08/08/2014 2:52 PM CDT Narrative 08/08/2014 3:12 PM CDT LUKE BASHIR M.D. FINAL REPORT ACC# Date Time Exam [id number] August 08, 2014 14:52:00 [facility] [place] [address] Dig Breast Yinka Yann [id number] August 08, 2014 14:52:00 [facility] [place] [address] Diag Mammogram Bilateral Technologist(s): Dali Sue; ; EXAMINATION: BILATERAL FULL FIELD DIGITAL DIAGNOSTIC MAMMOGRAM WITH CAD AND DIGITAL BREAST TOMOSYNTHESIS HISTORY: 44-year-old woman with a reported palpable area of concern in the upper inner right breast and in the upper outer left breast. TECHNIQUE: Full field digital craniocaudal and mediolateral oblique views of both breasts were obtained. Computer Aided Detection was performed with [employer].3 version 9.3. Digital breast tomosynthesis was performed [...] BASHIR M.D. on Aug 08 2014 3:12P [id number] Procedure Note Provider, MD Diana - 07/16/2016 LUKE BASHIR M.D. FINAL REPORT ACC# Date Time Exam [id number] August 08, 2014 14:52:00 [facility] [place] [address] Dig Breast Yinka Yann [id number] August 08, 2014 14:52:00 [place] [id number] Diag Mammogram Bilateral Technologist(s): Dali Sue; ; EXAMINATION: BILATERAL FULL FIELD DIGITAL DIAGNOSTIC MAMMOGRAM WITH CAD AND DIGITAL BREAST TOMOSYNTHESIS HISTORY: 44-year-old woman with a reported palpable area of concern in the upper inner right breast and in the upper outer left breast. TECHNIQUE: Full field digital craniocaudal and mediolateral oblique views of both breasts were obtained. Computer Aided Detection was performed with [employer].3 version 9.3. Digital breast tomosynthesis was performed [...] BASHIR M.D. on Aug 08 2014 3:12P [id number] Historical Provider MD FERNÁNDEZ MAMMO PROCEDURES Chelsea l Result from Last 3 Months or Most Recently Relevant to Health Maintenance Insurance [facility] ANTHEM ACCESS CHOICE ANTHEM ACCESS CHOICE IDPA WORKERS COMPENSATION GENERIC Care Teams Supervisor Welding Equipment Repairer Relationship Specialty [place] [address] [place] [id number] PCP - General 03/26/19
== END 2024-11-27 13:43 | disposition left against medical advice (07) ==
LOC: ANHED 13:37
DX: K05.10 Chronic gingivitis, plaque induced (principal); M32.9 Systemic lupus erythematosus, unspecified
CPT/HCPCS: 99199

== ENCOUNTER 2024-11-27 13:51 | Emergency (ER) | payer BC, SELFPAY ==
--- NOTE | 2024-11-27 14:04 | ED.GENADULT ---
HPI - General Adult General Chief complaint: Unspecified Stated complaint: Allergic Reaction/Bleeding/Stomach Pain Source: patient, RN notes reviewed and old records reviewed Mode of arrival: ambulatory Limitations: no limitations History of Present Illness HPI narrative: 54-year-old female presents to the [facility] with multiple concerns. States that she was prescribed Bactrim on November 12 for UTI. Six days ago started having some comes swelling. Was concerned that it might be from the Bactrim which she had finished for couple of days. Patient also had some blood when she wiped last night. Denies any urinary symptoms currently. Has a history of hemorrhoids. States she had some discomfort with her abdomen last night, nothing today. Related Data Home Medications ?Medication ?Instructions ?Recorded ?Confirmed ?Last Taken ?Type ergocalciferol (vitamin D2) 1,250 1 mcg PO DAILY 11/26/21 12/14/21 Unknown History mcg (50,000 unit) capsule hydroxychloroquine 200 mg tablet 200 mg PO DAILY 11/26/21 12/14/21 Unknown History metformin 500 mg tablet,extended 500 mg PO HS 11/26/21 12/14/21 Unknown History release 24 hr rosuvastatin 5 mg tablet 5 mg PO DAILY 11/26/21 12/14/21 Unknown History Allergies Allergy/AdvReac Type Severity Reaction Status Date / Time codeine Allergy Mild Other Verified 11/27/24 14:13 Review of Systems Review of Systems: All systems reviewed & are unremarkable except as noted in HPI and below Constitutional: Constitutional: Reports no additional constitutional complaints ENT: Reports as per HPI Cardiovascular: Cardiovascular: Reports no additional cardiovascular complaints, Denies chest pain and Denies dyspnea Respiratory: Respiratory: Reports no additional respiratory complaints, Denies chest congestion, Denies cough and Denies dyspnea Musculoskeletal: Musculoskeletal: Reports no additional musculoskeletal complaints Integumentary/Breasts: Skin/Breast: Reports system reviewed and no additional complaints, except as docu PMFSH Past Medical History Medical History Osteoarthritis Rheumatoid arthritis Social History Social History Smoking status: Never smoker Alcohol intake: never Comments At the time of my signature, I reviewed and agree with the nursing past medical, surgical, social, and family history. There is no relevant family history pertinent to the patient complaint. Exam Const: General: cooperative, healthy appearing, comfortable, no acute distress, well developed, alert and well nourished Nutritional Appearance: well nourished Orientation/consciousness: patient oriented x3 Limitations: no limitations HENMT: Head: normal to inspection Mouth: Yes lip normal, Yes tongue normal and Yes moist mucous membranes Teeth and gingiva: fair dentition and gingiva abnormal hypertrophic, edematous, tender and receding; not erythematous and not pallid Throat: posterior oropharynx normal, uvula midline and no uvular edema Eyes: General: appearance normal, both eyes and all related structures Alignment and Position: alignment normal Neck: Neck: normal visual inspection, full ROM, no lymphadenopathy and no meningeal signs Chest: Chest palpation & inspection: normal inspection of the chest Resp: Effort & Inspection: normal respiratory effort and able to speak in complete sentences Auscultation: clear to auscultation bilaterally, no crackles, no rales, no rhonchi and no wheezes Cardio: Rate: regular rate GI: GI Palp: No abdominal tenderness : General: Yes no CVA tenderness Skin: General skin exam: normal color and no rashes or lesions noted Neuro: General: patient oriented x3, gait normal, moves all extremities and no meningeal signs Cognition (Neuro): normal cognition Speech: normal speech Gait exam (Neuro): Normal gait present Extrem: General: normal to inspection, full ROM, capillary refill normal and normal gait Psych: Appearance: grossly normal and well kempt Mental Status: mental status grossly normal Speech and movement: Normal speech and movement present and Clear speech present Affect: normal affect Attitude: cooperative Course Course Level of Care: Express Care Visit Vital Signs Vital signs: Vital Signs Temperature 97.1 F L 11/27/24 14:06 Pulse Rate 97 11/27/24 14:06 Respiratory Rate 16 11/27/24 14:06 Blood Pressure 122/86 11/27/24 14:06 Pulse Oximetry 100 11/27/24 14:06 Temperature 97.1 F L 11/27/24 14:06 Pulse Rate 97 11/27/24 14:06 Respiratory Rate 16 11/27/24 14:06 Blood Pressure 122/86 11/27/24 14:06 Pulse Oximetry 100 11/27/24 14:06 Reviewed Medical Decision Making MDM Narrative Medical decision making narrative: Patient sitting comfortably in exam room. Patient is nontoxic, vitals stable. Patient with multiple complaints most have resolved since last night. Patient with significant gingival swelling, gingivitis. Fair dentition. Discussed pswy-pdx-dpphyod treatments in the importance of following up with a dental provider. Patient denies any abdominal pain currently on exam. Her discussed that if she does have rectal bleeding further evaluation needs to be done in the ER which she states she had just left and did not want await. Patient reports that she does not take her medications as prescribed Discharge instructions reviewed with patient, as well as provided in writing per nursing staff. The instructions also include specific and strict return/GO TO THE ER as well as f/u information. All questions have been answered, and the patient deny any further questions with discharge and discharge plan. Some parts of this dictation were generated by voice recognition software and may contain typographical and/or grammatical inaccuracies. Differential Diagnosis Differential Diagnosis: Gingivitis, hemorrhoids, GI bleed, abdominal discomfort, lupus flare Medical Records Medical records reviewed: Yes I reviewed the external patient's medical records. Vital Signs Vital Signs: Vital Signs Temperature 97.1 F L 11/27/24 14:06 Pulse Rate 97 11/27/24 14:06 Respiratory Rate 16 11/27/24 14:06 Blood Pressure 122/86 11/27/24 14:06 Pulse Oximetry 100 11/27/24 14:06 Temperature 97.1 F L 11/27/24 14:06 Pulse Rate 97 11/27/24 14:06 Respiratory Rate 16 11/27/24 14:06 Blood Pressure 122/86 11/27/24 14:06 Pulse Oximetry 100 11/27/24 14:06 Reviewed Lab Data Lab results reviewed: Yes I reviewed the patient's lab results. Labs: Reviewed Critical Care Time Critical Care Time Critical Care Time: No Discharge Plan Discharge Clinical Impression: Gingivitis, History of lupus, Hx of hemorrhoids Patient Disposition: Home Condition: Stable Instructions: Antibiotic Form, Gingivitis (ED) Additional Instructions: Following up with your dental provider and good oral hygiene is extremely important. A ways follow-up with primary care provider For worsening symptoms please go directly to the emergency room Patient Language: Kinyarwanda Prescriptions: No Action ipratropium bromide 21 mcg (0.03 %) spray,non-aerosol 2 spray NASAL TID PRN (Reason: nasal drainage) Qty: 30 0RF Rx Instructions: administer into each nostril ergocalciferol (vitamin D2) 1,250 mcg (50,000 unit) capsule 1 mcg PO DAILY hydroxychloroquine 200 mg tablet 200 mg PO DAILY metformin 500 mg tablet extended release 24 hr 500 mg PO HS rosuvastatin 5 mg tablet 5 mg PO DAILY Follow-up/Referrals: PHYSICIAN,BODY SANDER [Primary Care Provider, Internal Medicine] Stand Alone Forms: Work/School Release IP Time of Disposition: 14:28
[2024-11-27 14:06] VITALS: BP 122/86; PULSE 97; RESP 16; TEMP 36.2; O2SAT 100
== END 2024-11-27 14:36 | disposition home or self-care (01) ==
PROVIDERS: Emergency Provider Nurse Practitioner
DX: K05.10 Chronic gingivitis, plaque induced (principal); M32.9 Systemic lupus erythematosus, unspecified; Z87.19 Personal history of other diseases of the digestive system; M19.90 Unspecified osteoarthritis, unspecified site; M06.9 Rheumatoid arthritis, unspecified
CPT/HCPCS: 99211; G0463